=== PATIENT | male | born 1935 | race Caucasian/White ===

== ENCOUNTER 2018-07-18 14:15 | Emergency (ER) | payer BC, MEDICARE ==
[2018-07-18] MEDS ORDERED: Albuterol/Ipratropium 3.0-0.5 MG/3 ML Neb Soln NEB ONE (14:44)
[2018-07-18] MEDS ORDERED: Lisinopril 10 MG Tab PO ONE (14:44)
--- NOTE | 2018-07-18 14:50 | EDM.PDOC ---
ED HPI GENERAL MEDICAL PROBLEM - General Chief Complaint: Respiratory Problem Stated Complaint: SOB Time Seen by Provider: 07/18/18 14:35 Source of Information: Reports: Patient, Old Records, RN History Limitations: Reports: No Limitations - History of Present Illness INITIAL COMMENTS - FREE TEXT/NARRATIVE: 83 yo male here with SOB and elevated BP. He has a hx of known COPD and used his Spiriva this morning without benefit. He has not had a fever. Starting last night he had a dry cough that was worse with lying and kept him awake. Today he has added SOB that is worse with lying. He checks his BP every day and normally runs about 130 systolic without the aid of meds, and was similarly this low this morning at home. He was outside blowing leaves yesterday before these sx's began. He called his clinic and was directed to the ER. Onset: Gradual Onset Date: 07/17/18 Onset Time: 22:00 Duration: Hour(s):, Getting Worse Location: Reports: Chest Quality: Reports: Other (no pain) Severity: Moderate (dyspnea) Improves with: Reports: Rest, Other (and sitting up) Worsens with: Reports: Other (lying or exertion) Context: Reports: Other (See HPI) Associated Symptoms: Reports: Cough, Shortness of Breath. 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: Other (see below) (none) - Related Data Allergies Allergy/AdvReac Type Severity Reaction Status Date / Time chocolate flavor Allergy Cough Verified 07/01/13 22:03 Home Meds: Home Meds Omeprazole [Prilosec] 20 mg PO DAILY 07/01/13 [History] Albuterol [Proventil HFA] 2 puff INH Q4H PRN #1 inhaler 07/18/18 [Rx] Azithromycin [Zithromax] 250 mg PO DAILY #4 tab 07/18/18 [Rx] Tiotropium [Spiriva Handihaler] 18 mcg IN ASDIRECTED 07/18/18 [History] Past Medical History Respiratory History: Reports: COPD - Past Surgical History Other Cardiovascular Surgeries/Procedures: Aortic valve replacement 2015 GI Surgical History: Reports: Cholecystectomy Social & Family History - Tobacco Use Smoking Status *Q: Former Smoker Used Tobacco, but Quit: Yes Month/Year Tobacco Last Used: 2010 - Caffeine Use Caffeine Use: Reports: Coffee - Recreational Drug Use Recreational Drug Use: No ED ROS GENERAL - Review of Systems Review Of Systems: See Below Constitutional: Reports: No Symptoms HEENT: Reports: No Symptoms Respiratory: Reports: Shortness of Breath, Cough, Other (orthopnea). Denies: Wheezing, Pleuritic Chest Pain, Sputum, Hemoptysis Cardiovascular: Reports: Dyspnea on Exertion, Orthopnea. Denies: Chest Pain, Edema, Lightheadedness, Palpitations, PND, Syncope Endocrine: Reports: No Symptoms GI/Abdominal: Reports: No Symptoms : Reports: No Symptoms Musculoskeletal: Reports: No Symptoms Skin: Reports: No Symptoms Neurological: Reports: No Symptoms Psychiatric: Reports: No Symptoms ED EXAM, GENERAL - Physical Exam Exam: See Below Exam Limited By: No Limitations General Appearance: Alert, WD/WN, No Apparent Distress Eye Exam: Bilateral Eye: Normal Inspection Ears: Normal External Exam, Normal Canal, Hearing Grossly Normal Ear Exam: Bilateral Ear: Auricle Normal, Canal Normal Nose: Normal Inspection, Normal Mucosa, No Blood Throat/Mouth: Normal Inspection, Normal Lips, Normal Oropharynx, Normal Voice, No Airway Compromise Head: Atraumatic, Normocephalic Neck: Normal Inspection Respiratory/Chest: No Respiratory Distress, No Accessory Muscle Use, Decreased Breath Sounds Cardiovascular: Regular Rate, Rhythm, No Edema Back Exam: Normal Inspection Extremities: Normal Inspection, Normal Range of Motion, Non-Tender, No Pedal Edema Neurological: Alert, Oriented, CN II-XII Intact, Normal Cognition, No Motor/ Sensory Deficits Psychiatric: Normal Affect, Normal Mood Skin Exam: Warm, Dry, Intact, Normal Color, No Rash Course - Vital Signs Text/Narrative:: Much better after neb treatment Last Recorded V/S: Last Vital Signs Temp 36.9 C 07/18/18 14:33 Pulse 96 07/18/18 14:33 Resp 18 07/18/18 14:33 BP 192/85 H 07/18/18 14:52 Pulse Ox 92 L 07/18/18 14:33 - Orders/Labs/Meds Orders: Active Orders 24 hr Category Date Time Status RT Aerosol Therapy [RC] ASDIRECTED Care 07/18/18 14:45 Active Labs: Laboratory Tests 07/18/18 07/18/18 07/18/18 Range/Units 14:45 14:45 14:45 WBC 16.2 H (4.5-11.0) K/uL RBC 4.20 L (4.30-5.90) M/uL Hgb 12.4 (12.0-15.0) g/dL Hct 38.5 L (40.0-54.0) % MCV 92 (80-98) fL MCH 30 (27-31) pg MCHC 32 (32-36) % Plt Count 342 (150-400) K/uL D-Dimer, Quantitative 424 H (0.0-400.0) ng/mL Sodium 135 L (140-148) mmol/L Potassium 4.0 (3.6-5.2) mmol/L Chloride 100 (100-108) mmol/L Carbon Dioxide 27 (21-32) mmol/L Anion Gap 12.0 (5.0-14.0) mmol/L BUN 14 (7-18) mg/dL Creatinine 0.9 (0.8-1.3) mg/dL Est Cr Clr Drug Dosing 56.00 mL/min Estimated GFR (MDRD) > 60 (>60) Glucose 124 H (74-106) mg/dL Calcium 9.3 (8.5-10.1) mg/dL Troponin I < 0.017 (0.000-0.056) ng/mL NT-Pro-B Natriuret Pep 241 (5-450) pg/mL Meds: Medications Discontinued Medications Generic Name Dose Route Start Last Admin Trade Name Freq PRN Reason Stop Dose Admin Albuterol/Ipratropium 3 ml 07/18/18 14:44 07/18/18 14:51 Duoneb 3.0-0.5 Mg/3 Ml NEB 07/18/18 14:45 3 ml ONETIME ONE Administration Azithromycin 500 mg 07/18/18 15:43 Zithromax PO 07/18/18 15:44 ONETIME ONE Lisinopril 10 mg 07/18/18 14:44 07/18/18 14:52 Prinivil PO 07/18/18 14:45 10 mg ONETIME ONE Administration - Radiology Interpretation Free Text/Narrative:: CXR- Departure - Departure Time of Disposition: 15:50 Disposition: Home, Self-Care 01 Condition: Fair Clinical Impression: Walking pneumonia - Discharge Information *PRESCRIPTION DRUG MONITORING PROGRAM REVIEWED*: No *COPY OF PRESCRIPTION DRUG MONITORING REPORT IN PATIENT SANTIAGO: No Prescriptions: Albuterol [Proventil HFA] 2 puff INH Q4H PRN #1 inhaler PRN Reason: Shortness Of Breath Azithromycin [Zithromax] 250 mg PO DAILY #4 tab Referrals: Robert Lopez MD [Primary Care Provider] - Forms: ED Department Discharge Additional Instructions: Take azithromycin 250 mg every 24 hrs, next dose tomorrow @ 3:45pm. Use the albuterol inhaler as directed for wheezing or SOB. Recheck in the clinic before the weekend. - My Orders Last 24 Hours: My Active Orders 07/18/18 14:45 RT Aerosol Therapy [RC] ASDIRECTED - Assessment/Plan Last 24 Hours: My Active Orders 07/18/18 14:45 RT Aerosol Therapy [RC] ASDIRECTED
--- NOTE | 2018-07-18 15:33 | CRLCR ---
INDICATION: SOB. TECHNIQUE: PA and lateral. COMPARISON: None. FINDINGS: Retrocardiac left lower lobe base opacity due to any combination of pneumonia, atelectasis and fibrosis. Lungs otherwise clear. No pleural effusion. Heart size and pulmonary vasculature within normal limits. Aortic valve stent. No significant bony abnormality. IMPRESSION: 1. Retrocardiac left lower lobe base opacity due to any combination of pneumonia, atelectasis and fibrosis. 2. Aortic valve stent. Dictated by Joao Méndez MD @ Jul 18 2018 3:29PM Signed by Dr. Joao Méndez @ Jul 18 2018 3:31PM
[2018-07-18] MEDS ORDERED: Azithromycin 250 MG Tab PO ONE (15:43)
== END 2018-07-18 15:57 | disposition home or self-care (01) ==
LOC: JP.ED 14:15
DX: J18.9 Pneumonia, unspecified organism (principal); Z79.899 Other long term (current) drug therapy; Z87.891 Personal history of nicotine dependence
CPT/HCPCS: 36415; 71046; 80048; 83880; 84484; 85027; 85379; 94640; 99285; A9270; J7620-GY

== ENCOUNTER 2018-10-27 18:26 | Inpatient (IN) | payer MEDICARE ==
[2018-10-27] MEDS ORDERED: Albuterol/Ipratropium 3.0-0.5 MG/3 ML Neb Soln NEB ONE (18:59)
[2018-10-27] MEDS ORDERED: Sodium Chloride 0.9% 10 ML Syringe FLUSH PRN (19:01)
[2018-10-27] MEDS ORDERED: Sodium Chloride 0.9% 1,000 ML IV ONE (19:02)
[2018-10-27] MEDS ORDERED: Acetaminophen 500 MG Tab PO ONE (19:03)
--- NOTE | 2018-10-27 20:21 | CRLCR ---
TECHNIQUE: PA and lateral chest. INDICATION: Fever. FINDINGS: Subtle opacity in the left lung base, atelectasis versus pneumonia. Right lung clear. Aortic valve prosthesis. Otherwise normal. Dictated by Ketan Mike MD @ 10/27/2018 8:19:51 PM Dictated by: Ketan Mike MD @ 10/27/2018 20:20:00 (Electronically Signed)
--- NOTE | 2018-10-27 20:39 | EDM.PDOC ---
ED HPI GENERAL MEDICAL PROBLEM - General Chief Complaint: Respiratory Problem Stated Complaint: SOB Time Seen by Provider: 10/27/18 18:31 Source of Information: Reports: Patient History Limitations: Reports: No Limitations - History of Present Illness INITIAL COMMENTS - FREE TEXT/NARRATIVE: This gentleman is here because of shortness of breath and dyspnea on exertion and fever. He was treated for pneumonia back in May or June. Today he can' t a little bit of diarrhea. No vomiting. He has been out in the heat some. He didn't know he had a fever until he got here. Has a history of COPD. Had a aortic valve replacement in the past percutaneous had a recent physical exam and pneumonia vaccination - Related Data Allergies Allergy/AdvReac Type Severity Reaction Status Date / Time chocolate flavor Allergy Cough Verified 10/27/18 18:30 Home Meds: Home Meds Omeprazole [Prilosec] 20 mg PO DAILY 07/01/13 [History] Albuterol [Proventil HFA] 2 puff INH Q4H PRN #1 inhaler 07/18/18 [Rx] Tiotropium [Spiriva Handihaler] 18 mcg IN ASDIRECTED 07/18/18 [History] Aspirin 10/27/18 [History] Past Medical History Respiratory History: Reports: COPD, Pneumonia, Recurrent - Past Surgical History Other Cardiovascular Surgeries/Procedures: Aortic valve replacement 2016 GI Surgical History: Reports: Cholecystectomy Social & Family History - Tobacco Use Smoking Status *Q: Never Smoker - Caffeine Use Caffeine Use: Reports: Coffee ED ROS GENERAL - Review of Systems Review Of Systems: See Below Constitutional: Reports: Chills HEENT: Reports: No Symptoms Respiratory: Reports: Shortness of Breath Cardiovascular: Reports: No Symptoms Endocrine: Reports: No Symptoms GI/Abdominal: Reports: Diarrhea : Reports: No Symptoms Musculoskeletal: Reports: No Symptoms Skin: Reports: No Symptoms ED EXAM, GENERAL - Physical Exam Exam: See Below Exam Limited By: No Limitations General Appearance: Alert, WD/WN, No Apparent Distress Eye Exam: Bilateral Eye: Normal Inspection Ears: Normal External Exam Throat/Mouth: Normal Inspection, Normal Oropharynx Head: Atraumatic Neck: Normal Inspection Respiratory/Chest: Lungs Clear Cardiovascular: Regular Rate, Rhythm, No Murmur GI/Abdominal: Non-Tender, Other (Minimally distended) Back Exam: Normal Inspection Extremities: Normal Inspection Neurological: Alert, Oriented Psychiatric: Normal Affect Skin Exam: Warm, Dry Course - Vital Signs Last Recorded V/S: Last Vital Signs Temp 37.5 C 10/27/18 19:47 Pulse 111 H 10/27/18 19:47 Resp 28 H 10/27/18 19:47 BP 179/68 H 10/27/18 19:47 Pulse Ox 94 L 10/27/18 19:47 - Orders/Labs/Meds Orders: Active Orders 24 hr Category Date Time Status EKG Documentation Completion [RC] ASDIRECTED Care 10/27/18 19:01 Active RT Aerosol Therapy [RC] ASDIRECTED Care 10/27/18 19:01 Active CULTURE BLOOD [BC] Urgent Lab 10/27/18 19:18 Received CULTURE BLOOD [BC] Urgent Lab 10/27/18 19:25 Received UA W/MICROSCOPIC [URIN] Urgent Lab 10/27/18 19:00 Ordered Sodium Chloride 0.9% [Normal Saline] 1,000 ml Med 10/27/18 19:02 Active IV .BOLUS Sodium Chloride 0.9% [Saline Flush] Med 10/27/18 19:01 Active 10 ml FLUSH ASDIRECTED PRN Blood Culture x2 Reflex Set [OM.PC] Urgent Oth 10/27/18 19:01 Ordered Saline Lock Insert [OM.PC] Urgent Oth 10/27/18 19:00 Ordered EKG 12 Lead [EK] Urgent Ther 10/27/18 19:00 Ordered Medication Orders Sodium Chloride (Normal Saline) 1,000 mls @ 100 mls/hr IV .BOLUS ONE Stop: 10/28/18 05:01 Last Admin: 10/27/18 19:20 Dose: 100 mls/hr Sodium Chloride (Saline Flush) 10 ml FLUSH ASDIRECTED PRN PRN Reason: Keep Vein Open Last Admin: 10/27/18 19:18 Dose: 10 ml Labs: Laboratory Tests 10/27/18 10/27/18 10/27/18 Range/Units 19:00 19:00 19:18 WBC 16.4 H (4.5-11.0) K/uL RBC 4.30 (4.30-5.90) M/uL Hgb 12.9 (12.0-15.0) g/dL Hct 40.2 (40.0-54.0) % MCV 94 (80-98) fL MCH 30 (27-31) pg MCHC 32 (32-36) % Plt Count 322 (150-400) K/uL Neut % (Auto) 88 H (36-66) % Lymph % (Auto) 4 L (24-44) % Ritchie % (Auto) 8 H (2-6) % Eos % (Auto) 0 L (2-4) % Baso % (Auto) 0 (0-1) % Sodium 139 L (140-148) mmol/L Potassium 4.0 (3.6-5.2) mmol/L Chloride 103 (100-108) mmol/L Carbon Dioxide 26 (21-32) mmol/L Anion Gap 14.0 (5.0-14.0) mmol/L BUN 18 (7-18) mg/dL Creatinine 1.0 (0.8-1.3) mg/dL Est Cr Clr Drug Dosing 50.40 mL/min Estimated GFR (MDRD) > 60 (>60) Glucose 131 H (74-106) mg/dL Lactic Acid 1.5 (0.4-2.0) mmol/L Calcium 9.1 (8.5-10.1) mg/dL Total Bilirubin 0.7 (0.2-1.0) mg/dL AST 24 (15-37) U/L ALT 23 D (12-78) U/L Alkaline Phosphatase 103 (46-116) U/L Troponin I < 0.017 (0.000-0.056) ng/mL NT-Pro-B Natriuret Pep 271 (5-450) pg/mL Total Protein 8.2 (6.4-8.2) g/dL Albumin 3.7 (3.4-5.0) g/dL Globulin 4.5 H (2.3-3.5) g/dL Albumin/Globulin Ratio 0.8 L (1.2-2.2) Meds: Medications Generic Name Dose Route Start Last Admin Trade Name Freq PRN Reason Stop Dose Admin Sodium Chloride 1,000 mls @ 100 mls/hr 10/27/18 19:02 10/27/18 19:20 Normal Saline IV 10/28/18 05:01 100 mls/hr .BOLUS ONE Administration Sodium Chloride 10 ml 10/27/18 19:01 10/27/18 19:18 Saline Flush FLUSH 10 ml ASDIRECTED PRN Administration Keep Vein Open Discontinued Medications Generic Name Dose Route Start Last Admin Trade Name Matthewq PRN Reason Stop Dose Admin Acetaminophen 1,000 mg 10/27/18 19:03 10/27/18 19:17 Tylenol Extra Strength PO 10/27/18 19:04 1,000 mg ONETIME ONE Administration Albuterol/Ipratropium 3 ml 10/27/18 18:59 10/27/18 19:18 Duoneb 3.0-0.5 Mg/3 Ml NEB 10/27/18 19:00 3 ml ONETIME ONE Administration - Radiology Interpretation Free Text/Narrative:: Chest x-ray possibly slight infiltrate left base - Re-Assessments/Exams Free Text/Narrative Re-Assessment/Exam: 10/27/18 20:38 Alva Dickor from the hospitalist service is here and will admit this patient for pneumonia Departure - Departure Time of Disposition: 20:38 Disposition: Admitted As Inpatient 68 Condition: Fair Clinical Impression: Pneumonia - Discharge Information Referrals: Robert Lopez MD [Primary Care Provider] - - My Orders Last 24 Hours: My Active Orders 10/27/18 19:00 UA W/MICROSCOPIC [URIN] Urgent Saline Lock Insert [OM.PC] Urgent EKG 12 Lead [EK] Urgent 10/27/18 19:01 EKG Documentation Completion [RC] ASDIRECTED RT Aerosol Therapy [RC] ASDIRECTED Sodium Chloride 0.9% [Saline Flush] 10 ml FLUSH ASDIRECTED PRN Blood Culture x2 Reflex Set [OM.PC] Urgent 10/27/18 19:02 Sodium Chloride 0.9% [Normal Saline] 1,000 ml IV .BOLUS 10/27/18 19:18 CULTURE BLOOD [BC] Urgent 10/27/18 19:25 CULTURE BLOOD [BC] Urgent - Assessment/Plan Last 24 Hours: My Active Orders 10/27/18 19:00 UA W/MICROSCOPIC [URIN] Urgent Saline Lock Insert [OM.PC] Urgent EKG 12 Lead [EK] Urgent 10/27/18 19:01 EKG Documentation Completion [RC] ASDIRECTED RT Aerosol Therapy [RC] ASDIRECTED Sodium Chloride 0.9% [Saline Flush] 10 ml FLUSH ASDIRECTED PRN Blood Culture x2 Reflex Set [OM.PC] Urgent 10/27/18 19:02 Sodium Chloride 0.9% [Normal Saline] 1,000 ml IV .BOLUS 10/27/18 19:18 CULTURE BLOOD [BC] Urgent 10/27/18 19:25 CULTURE BLOOD [BC] Urgent
[2018-10-27] MEDS ORDERED: cefTRIAXone 1 GM in Sodium Chloride 0.9% 50 ML IV ONE (20:44)
[2018-10-27] MEDS ORDERED: Ondansetron 4 MG Tab.DIS PO PRN (21:55)
[2018-10-27] MEDS ORDERED: Melatonin 3 MG Tab PO PRN (21:55)
[2018-10-27] MEDS ORDERED: Ibuprofen 600 MG Tab PO PRN (21:55)
[2018-10-27] MEDS ORDERED: Albuterol 0.083% 2.5 MG/3 ML Neb Soln NEB PRN (21:55)
[2018-10-27] MEDS ORDERED: Bisacodyl 5 MG Tab PO PRN (21:55)
[2018-10-27] MEDS ORDERED: LORazepam 2 MG/ML SDV IV PRN (21:55)
[2018-10-27] MEDS ORDERED: Morphine 2 MG/ML Syringe IVPUSH PRN (21:55)
[2018-10-27] MEDS ORDERED: Sodium Chloride 0.9% 1,000 ML IV SCH (21:55)
[2018-10-27] MEDS ORDERED: Acetaminophen 325 MG Tab PO PRN (21:55)
[2018-10-27] MEDS ORDERED: Docusate Sodium 100 MG Cap PO PRN (21:55)
[2018-10-27] MEDS ORDERED: Enoxaparin 30 MG/0.3 ML Syringe SUBCUT SCH ×2 (22:00→23:00)
[2018-10-27] MEDS ORDERED: Azithromycin 500 MG in Sodium Chloride 0.9% 250 ML IV SCH (22:00)
[2018-10-27] MEDS: methylPREDNISolone Sodium Succinate 40 MG/1 ML SDV IVPUSH SCH (22:47)
[2018-10-27] MEDS: Albuterol/Ipratropium 3.0-0.5 MG/3 ML Neb Soln NEB SCH (22:48)
--- NOTE | 2018-10-27 23:27 | PCM.HP ---
H&P History of Present Illness - General Date of Service: 10/27/18 Admit Problem/Dx: Admission Diagnosis/Problem Admission Diagnosis/Problem Pneumonia - History of Present Illness Initial Comments - Free Text/Narative: chief complaint: shortness of breath with fever This is a 83 year old male presents to ER for shortness of breath with fever. Reports last night didn't sleep well. restless, coughing, felt feverish. His symptoms worsen during the day thought he better come to hospital to have evaluation. In ER febrile vital signs 38.2-117-20 B/P 179/71 O2 SAT 80% on room air. labs: CBC: wbc 16.4, hgb 12.9, hct 40.2, plt 322 Chemistries Na+ 139, K+ 4.0, Cl 103, anion gap 14, BUN 18, Cr 1.0, glucose 131, troponin 0.017 alkphos 103, ast 24, alt 23, BNP 271, blood cultures x 2 pending. Imaging: chest shows a opacity of left lower lung. plan: admit to hospital for IV antibiotic and IV fluids. discussed with Mr. Chao and Chrissy PINEDO, both agree with plan of care. Onset of Symptoms: Reports: Gradual Symptom Onset Date: 10/26/18 Duration of Symptoms: Reports: Hour(s): Location: Reports: Chest, Generalized Severity: Severe Improves with: Reports: None Worsens with: Reports: None Context: Reports: Other Associated Symptoms: Reports: Cough, Fever/Chills, Shortness of Breath, Weakness - Related Data Allergies/Adverse Reactions: Allergies Allergy/AdvReac Type Severity Reaction Status Date / Time chocolate flavor Allergy Cough Verified 10/27/18 18:30 Home Medications: Home Meds Omeprazole [Prilosec] 20 mg PO DAILY 07/01/13 [History] Albuterol [Proventil HFA] 2 puff INH Q4H PRN #1 inhaler 07/18/18 [Rx] Tiotropium [Spiriva Handihaler] 18 mcg IN ASDIRECTED 07/18/18 [History] Aspirin 10/27/18 [History] Past Medical History HEENT History: Reports: Cataract, Glaucoma, Hard of Hearing Respiratory History: Reports: COPD, Pneumonia, Recurrent - Infectious Disease History Infectious Disease History: Reports: Chicken Pox, Measles, Mumps - Past Surgical History Cardiovascular Surgical History: Reports: Other (See Below) Other Cardiovascular Surgeries/Procedures: Aortic valve replacement 2016 GI Surgical History: Reports: Cholecystectomy Social & Family History - Family History Family Medical History: Noncontributory - Tobacco Use Smoking Status *Q: Former Smoker Years of Tobacco use: 40 Packs/Tins Daily: 1 Used Tobacco, but Quit: Yes Month/Year Tobacco Last Used: 10 Second Hand Smoke Exposure: No - Caffeine Use Caffeine Use: Reports: Coffee Other Caffeine Use: 2 cups/ day - Recreational Drug Use Recreational Drug Use: No - Living Situation & Occupation Living situation: Reports: with Significant Other Occupation: Employed (lives with friend Chrissy Hernandez in [place], [place]. 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 has 3 children, Son in [place] , 2 Daughers on in [place] and on in [place].) H&P Review of Systems - Review of Systems: Review Of Systems: See Below General: Reports: Fever, Chills, Malaise, Weakness, Fatigue, Decreased Appetite HEENT: Reports: Glasses, Other (dentures) Pulmonary: Reports: Shortness of Breath, Cough, Sputum Cardiovascular: Reports: No Symptoms, Other (report hx of mitral valve replacement 2016, take one baby ASA per day) Gastrointestinal: Reports: No Symptoms Genitourinary: Reports: No Symptoms Musculoskeletal: Reports: Other (arthritis and bilateral hip pain) Skin: Reports: No Symptoms Psychiatric: Reports: No Symptoms Neurological: Reports: No Symptoms Hematologic/Lymphatic: Reports: No Symptoms Immunologic: Reports: No Symptoms Exam - Exam Exam: See Below - Vital Signs Vital Signs: Last Vital Signs Temp 37.3 C 10/27/18 22:04 Pulse 87 10/27/18 22:04 Resp 18 10/27/18 22:04 BP 128/54 L 10/27/18 22:04 Pulse Ox 95 10/27/18 22:54 Weight: 70.76 kg - Exam General: Alert, Oriented, Cooperative, Mild Distress HEENT: PERRLA, Hearing Intact, Mucosa Moist & [place], Nares Patent, Normal Nasal Septum, Posterior Pharynx Clear, Conjunctiva Clear, EOMI, EACs Clear, TMs Clear Neck: Supple, Trachea Midline, 2 Lungs: Decreased Breath Sounds Cardiovascular: Regular Rate, Regular Rhythm, Normal S1, Normal S2 (murmur present) GI/Abdominal Exam: Normal Bowel Sounds, Soft, Non-Tender, No Organomegaly, No Distention, Pelvis Stable Back Exam: Normal Inspection, Full Range of Motion, NT Extremities: Normal Inspection, Normal Range of Motion, Non-Tender, No Pedal Edema, Normal Capillary Refill Skin: Warm, Dry, Intact Neurological: Cranial Nerves Intact, Reflexes Equal Bilateral Neuro Extensive - Mental Status: Alert, Oriented x3, Normal Mood/Affect, Normal Cognition Neuro Extensive - Motor, Sensory, Reflexes: CN II-XII Intact, Normal Gait, Normal Reflexes Psychiatric: Alert, Normal Affect, Normal Mood - Patient Data Lab Results Last 24 hrs: Laboratory Results - last 24 hr 10/27/18 10/27/18 10/27/18 Range/Units 19:00 19:00 19:18 WBC 16.4 H (4.5-11.0) K/uL RBC 4.30 (4.30-5.90) M/uL Hgb 12.9 (12.0-15.0) g/dL Hct 40.2 (40.0-54.0) % MCV 94 (80-98) fL MCH 30 (27-31) pg MCHC 32 (32-36) % Plt Count 322 (150-400) K/uL Neut % (Auto) 88 H (36-66) % Lymph % (Auto) 4 L (24-44) % [place] % (Auto) 8 H (2-6) % Eos % (Auto) 0 L (2-4) % Baso % (Auto) 0 (0-1) % Sodium 139 L (140-148) mmol/L Potassium 4.0 (3.6-5.2) mmol/L Chloride 103 (100-108) mmol/L Carbon Dioxide 26 (21-32) mmol/L Anion Gap 14.0 (5.0-14.0) mmol/L BUN 18 (7-18) mg/dL Creatinine 1.0 (0.8-1.3) mg/dL Est Cr Clr Drug Dosing 50.40 mL/min Estimated GFR (MDRD) > 60 (>60) Glucose 131 H (74-106) mg/dL Lactic Acid 1.5 (0.4-2.0) mmol/L Calcium 9.1 (8.5-10.1) mg/dL Total Bilirubin 0.7 (0.2-1.0) mg/dL AST 24 (15-37) U/L ALT 23 D (12-78) U/L Alkaline Phosphatase 103 (46-116) U/L Troponin I < 0.017 (0.000-0.056) ng/mL NT-Pro-B Natriuret Pep 271 (5-450) pg/mL Total Protein 8.2 (6.4-8.2) g/dL Albumin 3.7 (3.4-5.0) g/dL Globulin 4.5 H (2.3-3.5) g/dL Albumin/Globulin Ratio 0.8 L (1.2-2.2) Urine Color Urine Appearance Urine pH (4.5-8.0) Ur Specific [place] (1.008-1.030) Urine Protein (NEGATIVE) mg/dL Urine Glucose (UA) (NEGATIVE) mg/dL Urine Ketones (NEGATIVE) mg/dL Urine Occult Blood (NEGATIVE) Urine Nitrite (NEGAITVE) Urine Bilirubin (NEGATIVE) Urine Urobilinogen (NORMAL) mg/dL Ur Leukocyte Esterase (NEGATIVE) Urine RBC (0-5) Urine WBC (0-5) Ur Epithelial Cells Amorphous Sediment Urine Bacteria Urine Mucus 10/27/18 Range/Units 22:42 WBC (4.5-11.0) K/uL RBC (4.30-5.90) M/uL Hgb (12.0-15.0) g/dL Hct (40.0-54.0) % MCV (80-98) fL MCH (27-31) pg MCHC (32-36) % Plt Count (150-400) K/uL Neut % (Auto) (36-66) % Lymph % (Auto) (24-44) % [place] % (Auto) (2-6) % Eos % (Auto) (2-4) % Baso % (Auto) (0-1) % Sodium (140-148) mmol/L Potassium (3.6-5.2) mmol/L Chloride (100-108) mmol/L Carbon Dioxide (21-32) mmol/L Anion Gap (5.0-14.0) mmol/L BUN (7-18) mg/dL Creatinine (0.8-1.3) mg/dL Est Cr Clr Drug Dosing mL/min Estimated GFR (MDRD) (>60) Glucose (74-106) mg/dL Lactic Acid (0.4-2.0) mmol/L Calcium (8.5-10.1) mg/dL Total Bilirubin (0.2-1.0) mg/dL AST (15-37) U/L ALT (12-78) U/L Alkaline Phosphatase (46-116) U/L Troponin I (0.000-0.056) ng/mL NT-Pro-B Natriuret Pep (5-450) pg/mL Total Protein (6.4-8.2) g/dL Albumin (3.4-5.0) g/dL Globulin (2.3-3.5) g/dL Albumin/Globulin Ratio (1.2-2.2) Urine Color Yellow Urine Appearance Clear Urine pH 5.0 (4.5-8.0) Ur Specific [place] 1.020 (1.008-1.030) Urine Protein Negative (NEGATIVE) mg/dL Urine Glucose (UA) Normal (NEGATIVE) mg/dL Urine Ketones Negative (NEGATIVE) mg/dL Urine Occult Blood Moderate (NEGATIVE) Urine Nitrite Negative (NEGAITVE) Urine Bilirubin Negative (NEGATIVE) Urine Urobilinogen Normal (NORMAL) mg/dL Ur Leukocyte Esterase Negative (NEGATIVE) Urine RBC 0-5 (0-5) Urine WBC 0-5 (0-5) Ur Epithelial Cells Not seen Amorphous Sediment Not seen Urine Bacteria Not seen Urine Mucus Moderate Result Diagrams: 10/27/18 19:00 10/27/18 19:18 - Problem List (1) Pneumonia SNOMED Code(s): 200839520 ICD Code: J18.9 - PNEUMONIA, UNSPECIFIED ORGANISM Status: Acute Priority : High Current Visit: Yes Qualifiers: Pneumonia type: due to unspecified organism Laterality: unspecified laterality Lung location: lower lobe of lung Qualified Code(s): J18.1 - Lobar pneumonia, unspecified organism Problem List Initiated/Reviewed/Updated: Yes Orders Last 24hrs: Active Orders 24 hr Category Date Time Status Cardiac Monitoring [RC] CONTINUOUS Care 10/27/18 21:55 Active Intake and Output [RC] QSHIFT Care 10/27/18 21:55 Active Notify Provider Vital Signs [RC] ASDIRECTED Care 10/27/18 21:55 Active Oxygen Therapy [RC] PRN Care 10/27/18 21:55 Active Pulse Oximetry [RC] CONTINUOUS Care 10/27/18 21:55 Active RT Aerosol Therapy [RC] ASDIRECTED Care 10/27/18 21:55 Active Up ad Evelin [RC] ASDIRECTED Care 10/27/18 21:55 Active VTE/DVT Education [RC] Per Unit Routine Care 10/27/18 21:55 Active Vital Signs [RC] Q4H Care 10/27/18 21:55 Active Regular Diet [DIET] Diet 10/27/18 Dinner Active BASIC METABOLIC PANEL,BMP [CHEM] AM Lab 10/28/18 05:11 Ordered CBC WITH AUTO DIFF [HEME] AM Lab 10/28/18 05:11 Ordered CULTURE BLOOD [BC] Urgent Lab 10/27/18 19:18 Received CULTURE BLOOD [BC] Urgent Lab 10/27/18 19:25 Received LACTIC ACID [CHEM] AM Lab 10/28/18 05:11 Ordered Acetaminophen [Tylenol] Med 10/27/18 21:55 Active 650 mg PO Q4H PRN Albuterol [Proventil Neb Soln] Med 10/27/18 21:55 Active 2.5 mg NEB Q4H PRN Albuterol/Ipratropium [DuoNeb 3.0-0.5 MG/3 ML] Med 10/27/18 22:00 Active 3 ml NEB QIDRT Azithromycin [Zithromax] 500 mg Med 10/27/18 22:00 Active Sodium Chloride 0.9% [Normal Saline] 250 ml IV Q24H Bisacodyl [Dulcolax] Med 10/27/18 21:55 Active 5 mg PO DAILY PRN Docusate Sodium [Colace] Med 10/27/18 21:55 Active 100 mg PO BID PRN Enoxaparin [Lovenox] Med 10/27/18 23:00 Active 30 mg SUBCUT Q12H Ibuprofen [Motrin] Med 10/27/18 21:55 Active 600 mg PO Q6H PRN LORazepam [Ativan] Med 10/27/18 21:55 Active 1 mg IV Q6H PRN Melatonin Med 10/27/18 21:55 Active 6 mg PO BEDTIME PRN Morphine Med 10/27/18 21:55 Active 2 mg IVPUSH Q2H PRN Ondansetron [Zofran ODT] Med 10/27/18 21:55 Active 4 mg PO Q6H PRN Pantoprazole [ProTONIX] Med 10/28/18 07:30 Active 40 mg PO ACBREAKFAST Sodium Chloride 0.9% [Normal Saline] 1,000 ml Med 10/27/18 19:02 Active IV .BOLUS Sodium Chloride 0.9% [Normal Saline] 1,000 ml Med 10/27/18 21:55 Active IV ASDIRECTED methylPREDNISolone Sod Succ [Solu-MEDROL] Med 10/27/18 22:00 Active 40 mg IVPUSH Q6H Blood Culture x2 Reflex Set [OM.PC] Urgent Oth 10/27/18 19:01 Ordered Resuscitation Status Routine Resus Stat 10/27/18 21:12 Ordered EKG 12 Lead [EK] Urgent Ther 10/27/18 19:00 Stop Req Medication Orders Acetaminophen (Tylenol) 650 mg PO Q4H PRN PRN Reason: Pain (Mild 1-3)/fever Last Admin: 10/27/18 22:47 Dose: 650 mg Albuterol (Proventil Neb Soln) 2.5 mg NEB Q4H PRN PRN Reason: Shortness Of Breath/wheezing Albuterol/Ipratropium (Duoneb 3.0-0.5 Mg/3 Ml) 3 ml NEB QIDRT CORBIN Last Admin: 10/27/18 22:48 Dose: 3 ml Bisacodyl (Dulcolax) 5 mg PO DAILY PRN PRN Reason: Constipation Docusate Sodium (Colace) 100 mg PO BID PRN PRN Reason: Constipation Enoxaparin Sodium (Lovenox) 30 mg SUBCUT Q12H [facility] [place] Sodium Chloride (Normal Saline) 1,000 mls @ 100 mls/hr IV .BOLUS ONE Stop: 10/28/18 05:01 Last Admin: 10/27/18 19:20 Dose: 100 mls/hr Azithromycin 500 mg/ Sodium (Chloride) 250 mls @ 250 mls/hr IV Q24H [facility] [place] Last Admin: 10/27/18 22:48 Dose: 250 mls/hr Sodium Chloride (Normal Saline) 1,000 mls @ 100 mls/hr IV ASDIRECTED [place]BIN Ibuprofen (Motrin) 600 mg PO Q6H PRN PRN Reason: Pain/Fever Lorazepam (Ativan) 1 mg IV Q6H PRN PRN Reason: Nausea/Vomiting Melatonin (Melatonin) 6 mg PO BEDTIME PRN PRN Reason: Insomnia Methylprednisolone Sodium Succinate (Solu-Medrol) 40 mg IVPUSH Q6H [facility] Last Admin: 10/27/18 22:47 Dose: 40 mg Morphine Sulfate (Morphine) 2 mg IVPUSH Q2H PRN PRN Reason: Pain (severe 7-10) Ondansetron HCl (Zofran Odt) 4 mg PO Q6H PRN PRN Reason: Nausea able to take PO Pantoprazole Sodium (Protonix) 40 mg PO ACBREAKFAST [facility] Assessment/Plan Comment:: ASSESSMENT AND PLAN - Left lower lobe pneumonia - symptoms of cough, fever, bodyache, weakness, chest xray did show left lower lobe infiltrate. No other obvious source for infection at this time. Atypical tickborne infection could be considered. Most likely this is a bacterial pneumonia. He is not currently hypoxic -Antibiotic coverage with Zithromax 500 mg IV and ceftriaxone 1 gram IV every 24 hours -IV Solumedrol 40 mg every 6 hours -Supplement oxygen if needed -Follow-up cultures -Repeat lactic acid -am labs: cbc, bmp Maintenance issues - - DVT prophylaxis - enoxaparin - GI prophylaxis - PPI - Nutrition - regular - Fink catheter - not indicated CODE STATUS - full Admission justification - This patient will be admitted for inpatient services and is medically appropriate meeting medical necessity for inpatient admission as outlined in my documentation. I reasonably expect the patient will require inpatient services that span a period time over 2 midnights. I reasonably expect this patient to be discharged or transferred within 96 hours [facility]. Disposition - anticipate discharge home after the hospital stay Primary care physician - Dr. Robert Lopez at [facility]. Hospitalist - Ketan Holt M.D.
[2018-10-28] MEDS: methylPREDNISolone Sodium Succinate 40 MG/1 ML SDV IVPUSH SCH ×2 (04:31→09:42)
[2018-10-28] MEDS: Albuterol/Ipratropium 3.0-0.5 MG/3 ML Neb Soln NEB SCH ×2 (07:14→10:54)
[2018-10-28] MEDS ORDERED: Pantoprazole 40 MG Tab.CR PO SCH (07:30)
--- NOTE | 2018-10-28 12:24 | PCM.DCSUM1 ---
Discharge Summary - Hospital Course Brief History: 83-year-old male with history of stable COPD who presented with fever and shortness of breath. He was admitted for management of left lower lobe pneumonia with hypoxic respiratory failure. Diagnosis: Stroke: No - Discharge Data Discharge Date: 10/28/18 Discharge Disposition: Home, Self-Care 01 Condition: Good - Discharge Diagnosis/Problem(s) (1) Acute respiratory failure with hypoxia SNOMED Code(s): 55584394, 368397026 ICD Code: J96.01 - ACUTE RESPIRATORY FAILURE WITH HYPOXIA Status: Acute (2) Pneumonia SNOMED Code(s): 661949027 ICD Code: J18.9 - PNEUMONIA, UNSPECIFIED ORGANISM Status: Acute Priority : High Qualifiers: Pneumonia type: due to unspecified organism Laterality: left Lung location: lower lobe of lung Qualified Code(s): J18.1 - Lobar pneumonia, unspecified organism - Patient Summary/Data Labs Pending at D/C: Blood cultures negative so far and pending at the time of discharge Hospital Course: Ed presented to the emergency room with acute onset of cough and shortness of breath as well as fever. Workup in the emergency room was suggestive of a left lower lobe pneumonia with acute hypoxic respiratory failure. Oxygen saturations on arrival were 80% on room air. He did respond to supplemental oxygen. He received ceftriaxone and azithromycin as well as IV steroids in the emergency room. Cultures were obtained. Overnight following admission there were no acute issues. The morning after admission he has been weaned off of his supplemental oxygen after requiring 3 L most of the night. He is afebrile since his presentation to the emergency room. Symptomatically he feels much better with only minimal cough and no complaints of shortness of breath. He has been up and walking around without any increase in his dyspnea. He did not desaturate with activity. He feels well at this time and is interested in going home. He is off supplemental oxygen and his vital signs are stable. He is afebrile. I do believe he is safe for outpatient management at this point. The plan is for him to receive 4 additional days of antibiotic therapy with both azithromycin and cefdinir. He will follow-up if symptoms do not continue to get better or if they get worse. - Patient Instructions Diet: Regular Diet as Tolerated Activity: As Tolerated Driving: May Drive Today Showering/Bathing: May Shower Notify Provider of: Fever, Increased Pain, Nausea and/or Vomiting Other/Special Instructions: 1. You were in the hospital for management of left lower lobe pneumonia. We did not determine a causative bacteria for the infection but you are improving with current therapy. I recommend that we continue antibiotic therapy with both azithromycin and cefdinir (Omnicef) as outlined below. You should rest and relax today and slowly work yourself back up to normal activity over the next few days. You could consider using Robitussin cough syrup if you have difficulties with cough after the hospital stay. 2. Follow up As needed if symptoms do not continue to get better or if they get worse. 3. Seek medical attention if fever greater than 101, severe shortness of breath or if you develop profound weakness or confusion - Discharge Plan *PRESCRIPTION DRUG MONITORING PROGRAM REVIEWED*: Not Applicable *COPY OF PRESCRIPTION DRUG MONITORING REPORT IN PATIENT SANTIAGO: Not Applicable Prescriptions/Med Rec: Azithromycin 500 mg PO BEDTIME #4 tablet Cefdinir 300 mg PO BID #8 capsule Home Medications: Home Meds Omeprazole [Prilosec] 20 mg PO DAILY 07/01/13 [History] Albuterol [Proventil HFA] 2 puff INH Q4H PRN #1 inhaler 07/18/18 [Rx] Tiotropium [Spiriva Handihaler] 18 mcg IN ASDIRECTED 07/18/18 [History] Aspirin 10/27/18 [History] Azithromycin 500 mg PO BEDTIME #4 tablet 10/28/18 [Rx] Cefdinir 300 mg PO BID #8 capsule 10/28/18 [Rx] Oxygen Therapy Mode: Room Air Patient Handouts: Cefdinir capsules, Community-Acquired Pneumonia, Adult Referrals: Robert Lopez MD [Primary Care Provider] - (Follow-up as needed if symptoms do not continue to get better or if they get worse) - Discharge Summary/Plan Comment DC Time >30 min.: No - Patient Data Vitals - Most Recent: Last Vital Signs Temp 35.8 C 10/28/18 10:26 Pulse 85 10/28/18 10:54 Resp 16 10/28/18 11:13 BP 110/48 L 10/28/18 11:13 Pulse Ox 97 10/28/18 11:13 Weight - Most Recent: 70.76 kg I&O - Last 24 hours: Intake & Output 10/27/18 10/28/18 10/28/18 22:59 06:59 14:59 Intake Total 383 221 3582 Output Total 75 125 Balance 175 578 901 Lab Results - Last 24 hrs: Laboratory Results - last 24 hr 10/27/18 10/27/18 10/27/18 Range/Units 19:00 19:00 19:18 WBC 16.4 H (4.5-11.0) K/uL RBC 4.30 (4.30-5.90) M/uL Hgb 12.9 (12.0-15.0) g/dL Hct 40.2 (40.0-54.0) % MCV 94 (80-98) fL MCH 30 (27-31) pg MCHC 32 (32-36) % Plt Count 322 (150-400) K/uL Neut % (Auto) 88 H (36-66) % Lymph % (Auto) 4 L (24-44) % [place] % (Auto) 8 H (2-6) % Eos % (Auto) 0 L (2-4) % Baso % (Auto) 0 (0-1) % Sodium 139 L (140-148) mmol/L Potassium 4.0 (3.6-5.2) mmol/L Chloride 103 (100-108) mmol/L Carbon Dioxide 26 (21-32) mmol/L Anion Gap 14.0 (5.0-14.0) mmol/L BUN 18 (7-18) mg/dL Creatinine 1.0 (0.8-1.3) mg/dL Est Cr Clr Drug Dosing 50.40 mL/min Estimated GFR (MDRD) > 60 (>60) Glucose 131 H (74-106) mg/dL Lactic Acid 1.5 (0.4-2.0) mmol/L Calcium 9.1 (8.5-10.1) mg/dL Total Bilirubin 0.7 (0.2-1.0) mg/dL AST 24 (15-37) U/L ALT 23 D (12-78) U/L Alkaline Phosphatase 103 (46-116) U/L Troponin I < 0.017 (0.000-0.056) ng/mL NT-Pro-B Natriuret Pep 271 (5-450) pg/mL Total Protein 8.2 (6.4-8.2) g/dL Albumin 3.7 (3.4-5.0) g/dL Globulin 4.5 H (2.3-3.5) g/dL Albumin/Globulin Ratio 0.8 L (1.2-2.2) Urine Color Urine Appearance Urine pH (4.5-8.0) Ur Specific [place] (1.008-1.030) Urine Protein (NEGATIVE) mg/dL Urine Glucose (UA) (NEGATIVE) mg/dL Urine Ketones (NEGATIVE) mg/dL Urine Occult Blood (NEGATIVE) Urine Nitrite (NEGAITVE) Urine Bilirubin (NEGATIVE) Urine Urobilinogen (NORMAL) mg/dL Ur Leukocyte Esterase (NEGATIVE) Urine RBC (0-5) Urine WBC (0-5) Ur Epithelial Cells Amorphous Sediment Urine Bacteria Urine Mucus 10/27/18 10/28/18 10/28/18 Range/Units 22:42 04:30 04:30 WBC 22.3 H (4.5-11.0) K/uL RBC 3.82 L (4.30-5.90) M/uL Hgb 11.7 L (12.0-15.0) g/dL Hct 35.5 L (40.0-54.0) % MCV 93 (80-98) fL MCH 31 (27-31) pg MCHC 33 (32-36) % Plt Count 286 (150-400) K/uL Neut % (Auto) 93 H (36-66) % Lymph % (Auto) 2 L (24-44) % [place] % (Auto) 5 (2-6) % Eos % (Auto) 0 L (2-4) % Baso % (Auto) 0 (0-1) % Sodium 140 (140-148) mmol/L Potassium 4.0 (3.6-5.2) mmol/L Chloride 106 (100-108) mmol/L Carbon Dioxide 22 (21-32) mmol/L Anion Gap 11.6 (5.0-14.0) mmol/L BUN 19 H (7-18) mg/dL Creatinine 1.1 (0.8-1.3) mg/dL Est Cr Clr Drug Dosing 45.81 mL/min Estimated GFR (MDRD) > 60 (>60) Glucose 205 H (74-106) mg/dL Lactic Acid (0.4-2.0) mmol/L Calcium 8.5 (8.5-10.1) mg/dL Total Bilirubin (0.2-1.0) mg/dL AST (15-37) U/L ALT (12-78) U/L Alkaline Phosphatase (46-116) U/L Troponin I (0.000-0.056) ng/mL NT-Pro-B Natriuret Pep (5-450) pg/mL Total Protein (6.4-8.2) g/dL Albumin (3.4-5.0) g/dL Globulin (2.3-3.5) g/dL Albumin/Globulin Ratio (1.2-2.2) Urine Color Yellow Urine Appearance Clear Urine pH 5.0 (4.5-8.0) Ur Specific [place] 1.020 (1.008-1.030) Urine Protein Negative (NEGATIVE) mg/dL Urine Glucose (UA) Normal (NEGATIVE) mg/dL Urine Ketones Negative (NEGATIVE) mg/dL Urine Occult Blood Moderate (NEGATIVE) Urine Nitrite Negative (NEGAITVE) Urine Bilirubin Negative (NEGATIVE) Urine Urobilinogen Normal (NORMAL) mg/dL Ur Leukocyte Esterase Negative (NEGATIVE) Urine RBC 0-5 (0-5) Urine WBC 0-5 (0-5) Ur Epithelial Cells Not seen Amorphous Sediment Not seen Urine Bacteria Not seen Urine Mucus Moderate 10/28/18 Range/Units 04:30 WBC (4.5-11.0) K/uL RBC (4.30-5.90) M/uL Hgb (12.0-15.0) g/dL Hct (40.0-54.0) % MCV (80-98) fL MCH (27-31) pg MCHC (32-36) % Plt Count (150-400) K/uL Neut % (Auto) (36-66) % Lymph % (Auto) (24-44) % [place] % (Auto) (2-6) % Eos % (Auto) (2-4) % Baso % (Auto) (0-1) % Sodium (140-148) mmol/L Potassium (3.6-5.2) mmol/L Chloride (100-108) mmol/L Carbon Dioxide (21-32) mmol/L Anion Gap (5.0-14.0) mmol/L BUN (7-18) mg/dL Creatinine (0.8-1.3) mg/dL Est Cr Clr Drug Dosing mL/min Estimated GFR (MDRD) (>60) Glucose (74-106) mg/dL Lactic Acid 2.6 H (0.4-2.0) mmol/L Calcium (8.5-10.1) mg/dL Total Bilirubin (0.2-1.0) mg/dL AST (15-37) U/L ALT (12-78) U/L Alkaline Phosphatase (46-116) U/L Troponin I (0.000-0.056) ng/mL NT-Pro-B Natriuret Pep (5-450) pg/mL Total Protein (6.4-8.2) g/dL Albumin (3.4-5.0) g/dL Globulin (2.3-3.5) g/dL Albumin/Globulin Ratio (1.2-2.2) Urine Color Urine Appearance Urine pH (4.5-8.0) Ur Specific [place] (1.008-1.030) Urine Protein (NEGATIVE) mg/dL Urine Glucose (UA) (NEGATIVE) mg/dL Urine Ketones (NEGATIVE) mg/dL Urine Occult Blood (NEGATIVE) Urine Nitrite (NEGAITVE) Urine Bilirubin (NEGATIVE) Urine Urobilinogen (NORMAL) mg/dL Ur Leukocyte Esterase (NEGATIVE) Urine RBC (0-5) Urine WBC (0-5) Ur Epithelial Cells Amorphous Sediment Urine Bacteria Urine Mucus Med Orders - Current: Current Medications Acetaminophen (Tylenol) 650 mg PO Q4H PRN PRN Reason: Pain (Mild 1-3)/fever Last Admin: 10/27/18 22:47 Dose: 650 mg Albuterol (Proventil Neb Soln) 2.5 mg NEB Q4H PRN PRN Reason: Shortness Of Breath/wheezing Albuterol/Ipratropium (Duoneb 3.0-0.5 Mg/3 Ml) 3 ml NEB QIDRT [facility] Last Admin: 10/28/18 10:54 Dose: 3 ml Bisacodyl (Dulcolax) 5 mg PO DAILY PRN PRN Reason: Constipation Docusate Sodium (Colace) 100 mg PO BID PRN PRN Reason: Constipation Enoxaparin Sodium (Lovenox) 40 mg SUBCUT BEDTIME [facility] Azithromycin 500 mg/ Sodium (Chloride) 250 mls @ 250 mls/hr IV Q24H [facility] Last Admin: 10/27/18 22:48 Dose: 250 mls/hr Ibuprofen (Motrin) 600 mg PO Q6H PRN PRN Reason: Pain/Fever Lorazepam (Ativan) 1 mg IV Q6H PRN PRN Reason: Nausea/Vomiting Melatonin (Melatonin) 6 mg PO BEDTIME PRN PRN Reason: Insomnia Morphine Sulfate (Morphine) 2 mg IVPUSH Q2H PRN PRN Reason: Pain (severe 7-10) Ondansetron HCl (Zofran Odt) 4 mg PO Q6H PRN PRN Reason: Nausea able to take PO Pantoprazole Sodium (Protonix) 40 mg PO ACBREAKFAST [facility] Last Admin: 10/28/18 08:01 Dose: 40 mg Discontinued Medications Acetaminophen (Tylenol Extra Strength) 1,000 mg PO ONETIME ONE Stop: 10/27/18 19:04 Last Admin: 10/27/18 19:17 Dose: 1,000 mg Albuterol/Ipratropium (Duoneb 3.0-0.5 Mg/3 Ml) 3 ml NEB ONETIME ONE Stop: 10/27/18 19:00 Last Admin: 10/27/18 19:18 Dose: 3 ml Enoxaparin Sodium (Lovenox) 30 mg SUBCUT Q24H [facility] Last Admin: 10/27/18 22:47 Dose: 30 mg Enoxaparin Sodium (Lovenox) 30 mg SUBCUT Q12H [facility] Last Admin: 10/28/18 00:37 Dose: Not Given Sodium Chloride (Normal Saline) 1,000 mls @ 100 mls/hr IV .BOLUS ONE Stop: 10/28/18 05:01 Last Admin: 10/27/18 19:20 Dose: 100 mls/hr Ceftriaxone Sodium 1 gm/ (Sodium Chloride) 50 mls @ 100 mls/hr IV ONETIME ONE Stop: 10/27/18 21:13 Last Admin: 10/27/18 21:09 Dose: 100 mls/hr Sodium Chloride (Normal Saline) 1,000 mls @ 100 mls/hr IV ASDIRECTED [facility] Last Admin: 10/28/18 05:41 Dose: 100 mls/hr Methylprednisolone Sodium Succinate (Solu-Medrol) 40 mg IVPUSH Q6H [facility] Last Admin: 10/28/18 09:42 Dose: 40 mg Sodium Chloride (Saline Flush) 10 ml FLUSH ASDIRECTED PRN PRN Reason: Keep Vein Open Last Admin: 10/27/18 19:18 Dose: 10 ml - Exam Quality Assessment: Denies: Supplemental Oxygen General: Reports: Alert, Oriented, Cooperative, No Acute Distress Lungs: Reports: Normal Respiratory Effort GI/Abdominal Exam: Soft, No Distention Extremities: No Pedal Edema Skin: Reports: Warm, Dry Psy/Mental Status: Reports: Alert, Normal Affect
[2018-10-28] MEDS ORDERED: Enoxaparin 40 MG/0.4 ML Syringe SUBCUT SCH (21:00)
== END 2018-10-28 13:30 | disposition home or self-care (01) | DRG 193 ==
LOC: JP.ED 18:26 → JP.MS 21:10
PROVIDERS: ADMIT Internal Medicine; ATTEND Internal Medicine
DX: J18.9 Pneumonia, unspecified organism (principal); J18.1 Lobar pneumonia, unspecified organism; J96.01 Acute respiratory failure with hypoxia; J44.0 Chronic obstructive pulmonary disease with (acute) lower respiratory infection; H91.90 Unspecified hearing loss, unspecified ear; M19.90 Unspecified osteoarthritis, unspecified site; Z95.2 Presence of prosthetic heart valve; Z91.018 Allergy to other foods; R19.7 Diarrhea, unspecified; R50.9 Fever, unspecified; R06.00 Dyspnea, unspecified; R06.02 Shortness of breath; Z79.899 Other long term (current) drug therapy; Z79.82 Long term (current) use of aspirin; Z87.01 Personal history of pneumonia (recurrent); Z90.49 Acquired absence of other specified parts of digestive tract; Z87.891 Personal history of nicotine dependence
CPT/HCPCS: 36415; 71046; 80053; 83605; 83880; 84484; 85025; 87040 ×2; 93005; 93010; 94640; 96361; 96374; 99285 ×2; A9270; J0696; J7030; J7050; 80048; 81001; 94762; J0456; J1650; J2920; J7620-GY

== ENCOUNTER 2019-11-15 19:27 | Emergency (ER) | payer MEDICARE ==
--- NOTE | 2019-11-15 20:55 | EDM.PDOC ---
ED HPI GENERAL MEDICAL PROBLEM - General Chief Complaint: General Stated Complaint: ACHES AND PAINS, COUGH Time Seen by Provider: 11/15/19 20:25 Source of Information: Reports: Patient, Family, RN Notes Reviewed History Limitations: Reports: No Limitations - History of Present Illness INITIAL COMMENTS - FREE TEXT/NARRATIVE: 84-year-old gentleman presents emergency department today complaint of body aches mainly in the muscles no joint aches and fever for the last 2 days he did have a potential exposure to cold bed about a week and a half ago being at a he admits that he did not wash his hands as well as he should or wear his mask it was in the neighboring [facility] which does have a higher COVID count. He is also been working outside there is a potential for tick exposure he did have a tick exposure about 2 months ago treatment with doxycycline for 10 days. He has had a cough with increased sputum production yellow in nature does have a history of COPD. Otherwise no other symptoms body aches Pain Score (Numeric/FACES): 0 - Related Data Allergies Allergy/AdvReac Type Severity Reaction Status Date / Time chocolate flavor Allergy Cough Verified 10/27/18 18:30 Home Meds: Home Meds Omeprazole [Prilosec] 20 mg PO DAILY 07/01/13 [History] Albuterol [Proventil HFA] 2 puff INH Q4H PRN #1 inhaler 07/18/18 [Rx] Tiotropium [Spiriva Handihaler] 18 mcg IN ASDIRECTED 07/18/18 [History] Aspirin 81 mg PO DAILY 10/27/18 [History] Fluticasone Propion/Salmeterol [Fluticasone-Salmeterol 250-50] 1 inh INH BID 11/15/19 [History] atorvaSTATin [Lipitor] 40 mg PO BEDTIME 11/15/19 [History] Past Medical History HEENT History: Reports: Cataract, Glaucoma, Hard of Hearing, Impaired Vision, Other (See Below) Other HEENT History: glasses Cardiovascular History: Reports: High Cholesterol Respiratory History: Reports: COPD, Pneumonia, Recurrent Gastrointestinal History: Reports: Helicobacter Pylori - Infectious Disease History Infectious Disease History: Reports: Chicken Pox, Measles, Mumps - Past Surgical History HEENT Surgical History: Reports: Cataract Surgery Cardiovascular Surgical History: Reports: Other (See Below) Other Cardiovascular Surgeries/Procedures: Aortic valve replacement 2016 GI Surgical History: Reports: Cholecystectomy Social & Family History - Family History Family Medical History: Noncontributory - Tobacco Use Smoking Status *Q: Never Smoker - Caffeine Use Caffeine Use: Reports: Coffee, Soda Other Caffeine Use: 2 cups/ day - Recreational Drug Use Recreational Drug Use: No - Living Situation & Occupation Living situation: Reports: with Significant Other Occupation: Employed (lives with friend Chrissy Hernandez in [place], [place]. 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 has 3 children, Son in [place], 2 Daughers on in [place] and on in [place].) ED ROS GENERAL - Review of Systems Review Of Systems: See Below Constitutional: Reports: Fever, Weakness HEENT: Reports: No Symptoms Respiratory: Reports: Shortness of Breath (Not beyond baseline), Cough, Sputum Cardiovascular: Reports: No Symptoms GI/Abdominal: Reports: No Symptoms : Reports: No Symptoms Musculoskeletal: Reports: No Symptoms Skin: Reports: No Symptoms Neurological: Reports: No Symptoms ED EXAM, GENERAL - Physical Exam Exam: See Below Exam Limited By: No Limitations General Appearance: Alert, WD/WN, No Apparent Distress Respiratory/Chest: No Respiratory Distress, Lungs Clear, Normal Breath Sounds, No Accessory Muscle Use, Chest Non-Tender Cardiovascular: Regular Rate, Rhythm, No Murmur GI/Abdominal: Soft, Non-Tender Back Exam: Normal Inspection, Full Range of Motion. No: CVA Tenderness (R), CVA Tenderness (L) Extremities: Normal Inspection, No Pedal Edema Course - Vital Signs Last Recorded V/S: Last Vital Signs Temp 100.1 F 11/15/19 20:03 Pulse 99 11/15/19 21:32 Resp 16 11/15/19 21:32 BP 144/58 H 11/15/19 21:32 Pulse Ox 96 11/15/19 21:32 - Orders/Labs/Meds Orders: Active Orders 24 hr Category Date Time Status Vital Signs [RC] Q1H Care 11/15/19 20:51 Active Chest 2V [CR] Urgent Exams 11/15/19 20:52 Taken CULTURE BLOOD [BC] Urgent Lab 11/15/19 21:00 Received CULTURE BLOOD [BC] Urgent Lab 11/15/19 21:03 Received Blood Culture x2 Reflex Set [OM.PC] Urgent Oth 11/15/19 20:51 Ordered Labs: Laboratory Tests 11/15/19 11/15/19 11/15/19 Range/Units 20:51 21:00 21:00 WBC 15.9 H (4.5-11.0) K/uL RBC 4.13 L (4.30-5.90) M/uL Hgb 12.3 (12.0-15.0) g/dL Hct 38.5 L (40.0-54.0) % MCV 93 (80-98) fL MCH 30 (27-31) pg MCHC 32 (32-36) % Plt Count 360 (150-400) K/uL Neut % (Auto) 77 H (36-66) % Lymph % (Auto) 10 L (24-44) % [place] % (Auto) 12 H (2-6) % Eos % (Auto) 0 L (2-4) % Baso % (Auto) 0 (0-1) % Sodium 138 L (140-148) mmol/L Potassium 4.0 (3.6-5.2) mmol/L Chloride 101 (100-108) mmol/L Carbon Dioxide 26 (21-32) mmol/L Anion Gap 15.0 H (5.0-14.0) mmol/L BUN 11 (7-18) mg/dL Creatinine 1.2 (0.8-1.3) mg/dL Est Cr Clr Drug Dosing 41.28 mL/min Estimated GFR (MDRD) 58 L (>60) Glucose 156 H (74-106) mg/dL Lactic Acid 1.3 (0.4-2.0) mmol/L Calcium 8.9 (8.5-10.1) mg/dL Total Bilirubin 0.7 (0.2-1.0) mg/dL AST 24 (15-37) U/L ALT 22 (12-78) U/L Alkaline Phosphatase 88 (46-116) U/L Creatine Kinase (39-308) U/L C-Reactive Protein 11.15 H (0.0-0.3) mg/dL Total Protein 7.9 (6.4-8.2) g/dL Albumin 3.5 (3.4-5.0) g/dL Globulin 4.4 H (2.3-3.5) g/dL Albumin/Globulin Ratio 0.8 L (1.2-2.2) Procalcitonin ng/mL Urine Color (YELLOW) Urine Appearance (CLEAR) Urine pH (5.0-8.0) Ur Specific [place] (1.008-1.030) Urine Protein (NEGATIVE) mg/dL Urine Glucose (UA) (NEGATIVE) mg/dL Urine Ketones (NEGATIVE) mg/dL Urine Occult Blood (NEGATIVE) Urine Nitrite (NEGATIVE) Urine Bilirubin (NEGATIVE) Urine Urobilinogen (0.2-1.0) EU/dL Ur Leukocyte Esterase (NEGATIVE) Urine RBC (0-5) Urine WBC (0-5) Ur Epithelial Cells Amorphous Sediment Urine Bacteria Urine Mucus 11/15/19 11/15/19 11/15/19 Range/Units 21:00 21:46 21:49 WBC (4.5-11.0) K/uL RBC (4.30-5.90) M/uL Hgb (12.0-15.0) g/dL Hct (40.0-54.0) % MCV (80-98) fL MCH (27-31) pg MCHC (32-36) % Plt Count (150-400) K/uL Neut % (Auto) (36-66) % Lymph % (Auto) (24-44) % [place] % (Auto) (2-6) % Eos % (Auto) (2-4) % Baso % (Auto) (0-1) % Sodium (140-148) mmol/L Potassium (3.6-5.2) mmol/L Chloride (100-108) mmol/L Carbon Dioxide (21-32) mmol/L Anion Gap (5.0-14.0) mmol/L BUN (7-18) mg/dL Creatinine (0.8-1.3) mg/dL Est Cr Clr Drug Dosing mL/min Estimated GFR (MDRD) (>60) Glucose (74-106) mg/dL Lactic Acid (0.4-2.0) mmol/L Calcium (8.5-10.1) mg/dL Total Bilirubin (0.2-1.0) mg/dL AST (15-37) U/L ALT (12-78) U/L Alkaline Phosphatase (46-116) U/L Creatine Kinase 139 (39-308) U/L C-Reactive Protein (0.0-0.3) mg/dL Total Protein (6.4-8.2) g/dL Albumin (3.4-5.0) g/dL Globulin (2.3-3.5) g/dL Albumin/Globulin Ratio (1.2-2.2) Procalcitonin < 0.05 ng/mL Urine Color Yellow (YELLOW) Urine Appearance Clear (CLEAR) Urine pH 6.5 (5.0-8.0) Ur Specific [place] 1.025 (1.008-1.030) Urine Protein 30 H (NEGATIVE) mg/dL Urine Glucose (UA) Negative (NEGATIVE) mg/dL Urine Ketones Negative (NEGATIVE) mg/dL Urine Occult Blood Trace-intact H (NEGATIVE) Urine Nitrite Negative (NEGATIVE) Urine Bilirubin Negative (NEGATIVE) Urine Urobilinogen 1.0 (0.2-1.0) EU/dL Ur Leukocyte Esterase Negative (NEGATIVE) Urine RBC Not seen (0-5) Urine WBC Not seen (0-5) Ur Epithelial Cells Not seen Amorphous Sediment Many Urine Bacteria Not seen Urine Mucus Not seen Departure - Departure Time of Disposition: 22:08 Disposition: Home, Self-Care 01 Condition: Fair Clinical Impression: Pneumonia - Discharge Information Referrals: Robert Lopez MD [Primary Care Provider] - Forms: ED Department Discharge Additional Instructions: Take full course of antibiotics, use Tylenol or Motrin as needed for fever control, please followup with your primary care provider in 3-5 days if not better, please call return to the emergency department with worsening of symptoms. Sepsis Event Note (ED) - Evaluation Sepsis Screening Result: Possible Sepsis Risk - Focused Exam Vital Signs: Vital Signs Temp Pulse Resp BP Pulse Ox 11/15/19 21:32 99 16 144/58 H 96 11/15/19 20:39 93 137/67 94 L 11/15/19 20:03 100.1 F 101 H 16 144/52 H 95 11/15/19 19:43 100.1 F 101 H 16 144/52 H 95 - My Orders Last 24 Hours: My Active Orders 11/15/19 20:51 Vital Signs [RC] Q1H Blood Culture x2 Reflex Set [OM.PC] Urgent 11/15/19 20:52 Chest 2V [CR] Urgent 11/15/19 21:00 CULTURE BLOOD [BC] Urgent 11/15/19 21:03 CULTURE BLOOD [BC] Urgent - Assessment/Plan Last 24 Hours: My Active Orders 11/15/19 20:51 Vital Signs [RC] Q1H Blood Culture x2 Reflex Set [OM.PC] Urgent 11/15/19 20:52 Chest 2V [CR] Urgent 11/15/19 21:00 CULTURE BLOOD [BC] Urgent 11/15/19 21:03 CULTURE BLOOD [BC] Urgent Plan: Assessment Acuity = acute Site and laterality = community-acquired pneumonia left lower lobe Etiology = probable bacterial cause Manifestations = cough, sputum production Location of injury = Home Lab values = WBC elevated 15.9 consistent leukocytosis, lactic acid normal 1.3 CRP elevated 11.1, procalcitonin less than 0.05, CMP unremarkable urinalysis unremarkable chest x-ray does show an opacity left lower lobe official read radiologist pending Plan Elected to treat empirically azithromycin 5-day course, I did talk to him about the possibility of COVID he declined testing at this time was going to maintain a self quarantine at home follow-up primary care 3 to 5 days if not better This note was dictated using hike voice recognition software please call with any questions on syntax or grammar.
--- NOTE | 2019-11-18 10:34 | CR ---
CHEST: 2 view CLINICAL HISTORY:Cough, fever, COPD COMPARISON:2019 FINDINGS: Lungs are hyperaerated. There is some patchy fibrosis in the left lower lobe. This is increased since 2019. This may represent progressive disease. Superimposed infiltrate is felt less likely. Heart size and pulmonary vascularity are normal. There has been previous aortic valve replacement. Impression: Emphysematous changes Patchy left lower lobe density is in part chronic and may represent. Superimposed acute infiltrate is not excluded
== END 2019-11-15 22:30 | disposition home or self-care (01) ==
LOC: JP.ED 19:27
DX: J18.9 Pneumonia, unspecified organism (principal); E78.00 Pure hypercholesterolemia, unspecified; J44.9 Chronic obstructive pulmonary disease, unspecified; Z79.82 Long term (current) use of aspirin; Z91.018 Allergy to other foods; Z79.899 Other long term (current) drug therapy
CPT/HCPCS: 36415; 71046; 71046-26; 80053; 81001; 82550; 83605; 84145; 85025; 86140; 87040; 99283-25

== ENCOUNTER 2024-10-13 14:09 | Emergency (ER) | payer MEDICARE ==
[2024-10-13 15:09] LABS: APPEARANCE,URINE CLEAR (CLEAR); BILIRUBIN,URINE NEGATIVE (NEGATIVE); COLOR,URINE YELLOW (YELLOW); GLUCOSE,URINE NEGATIVE (NEGATIVE); KETONES,URINE NEGATIVE (NEGATIVE); LEUKOCYTE ESTERASE,URINE TRACE (NEGATIVE); NITRITE,URINE NEGATIVE (NEGATIVE); OCCULT BLOOD,URINE TRACE-INTACT (NEGATIVE); PROTEIN,URINE NEGATIVE (NEGATIVE); UROBILINOGEN,URINE 0.2 EU/dL (0.2-1.0)
[2024-10-13 15:18] LABS: AMORPHOUS SEDIMENT,URINE NOT SEEN; BACTERIA,URINE FEW; EPITHELIAL CELLS,URINE RARE; MUCUS,URINE NOT SEEN; RBC,URINE 0-5 (0-5)
[2024-10-13] MEDS: Cefdinir 300 MG Cap PO ONE (16:15)
== END 2024-10-13 16:19 | disposition home or self-care (01) ==
LOC: JP.ED 14:09
DX: R30.0 Dysuria (principal); S80.861A Insect bite (nonvenomous), right lower leg, initial encounter; J44.9 Chronic obstructive pulmonary disease, unspecified; Z90.49 Acquired absence of other specified parts of digestive tract; Z95.2 Presence of prosthetic heart valve; Z91.018 Allergy to other foods; Z79.51 Long term (current) use of inhaled steroids; Z79.82 Long term (current) use of aspirin; Z79.899 Other long term (current) drug therapy; W57.XXXA Bitten or stung by nonvenomous insect and other nonvenomous arthropods, initial encounter
CPT/HCPCS: 51798; 81001; 99283; A9270

== ENCOUNTER 2025-03-09 17:08 | Emergency (ER) | payer MEDICARE | END 2025-03-09 19:34 | disposition home or self-care (01) | LOC: JP.ED 17:08 | DX: S80.12XA Contusion of left lower leg, initial encounter (principal); E78.00 Pure hypercholesterolemia, unspecified; Z91.02 Food additives allergy status; Z79.899 Other long term (current) drug therapy; Z79.82 Long term (current) use of aspirin; W22.8XXA Striking against or struck by other objects, initial encounter | CPT/HCPCS: 73590-26-LT; 73590-LT; 99283 ==